=== PATIENT | female | born 1980 | race American Indian/Alaskan Native ===

== ENCOUNTER 2018-07-06 06:13 | Inpatient (IN) | payer OTHER ==
[2018-07-01 10:09] LABS: BUN/Creatinine Ratio 14; Blood Urea Nitrogen 11 mg/dL (7-17); Calcium 9.6 mg/dL (8.4-10.2); Hemolysis Index 23
--- NOTE | 2018-07-01 10:12 | Anesthesia Consultation ---
Anesthesia Consult and Med Hx Date of service: 07/06/18 - Airway Anesthetic Teeth Evaluation: Good ROM Head & Neck: Adequate Mental/Hyoid Distance: Adequate Intubation Access Assessment: Good - Pulmonary Exam CTA: Yes - Cardiac Exam Cardiac Exam: No Murmur - Pre-Operative Health Status ASA Pre-Surgery Classification: ASA3 Proposed Anesthetic Plan: General Nerve Block: TAP BLOCK - Cardiovascular System Hx Hypertension: Yes (x 5 yrs) - Central Nervous System Hx Psychiatric Problems: No - Hematic Hx Anemia: Yes - Other Systems Hx Alcohol Use: Yes (Occas) Hx Cancer: No
[2018-07-01 10:17] LABS: Hematocrit 33.9 % (30.3-42.9); Hemoglobin 11.1 gm/dl (10.1-14.3); Mean Corpuscular HGB Conc 33 % (30-34); Mean Corpuscular Volume 82 fl (79-97); Platelet Count 248 K/mm3 (140-440); Red Blood Count 4.15 M/mm3 (3.65-5.03); Red Cell Distribution Width 25.6 % (13.2-15.2)
[2018-07-01 12:08] LABS: Basophils % (Manual) 0 % (0.0-1.8); Total Cells Counted 100
[2018-07-01 12:09] LABS: Anisocytosis 1+; Hypochromasia 1+; Ovalocytes 1+; Platelet Estimate Consistent w Auto
[~2018-07-06 06:13] MED LIST: LACTATED RINGERS 1,000 ML IV SCH
[2018-07-06] MEDS ORDERED: Vasostrict ONE (06:59)
[2018-07-06] MEDS ORDERED: METHYLENE BLUE ONE (07:00)
[2018-07-06] MEDS ORDERED: NACL 0.9% 50 ML ONE (07:00)
[2018-07-06] MEDS ORDERED: XYLOCAINE CARDIAC IV ONE (07:07)
[2018-07-06] MEDS ORDERED: DIPRIVAN 10 MG/ML IV ONE (07:07)
[2018-07-06] MEDS ORDERED: ZEMURON IV ONE (07:07)
[2018-07-06] MEDS ORDERED: DILAUDID ONE (07:07)
--- NOTE | 2018-07-06 07:31 | Anesthesia Day of Surgery ---
Anesthesia Day of Surgery - Day of Surgery Patient Examined: Yes Patient H&P Reviewed: Yes Patient is NPO: Yes Beta Blockers: No Cardiac Clearance: No Pulmonary Clearance: No
[2018-07-06] MEDS ORDERED: MARCAINE 0.5% INFILTRATI ONE ×2 (07:39→07:40)
[2018-07-06] MEDS ORDERED: TYLENOL ONE (07:44)
[2018-07-06] MEDS ORDERED: ACD-A 500 ML IV ONE (07:59)
[2018-07-06] MEDS ORDERED: SUBLIMAZE IV PRN (08:00)
[2018-07-06] MEDS ORDERED: NARCAN 0.4 MG/1 ML IV PRN ×2 (08:00→11:27)
[2018-07-06] MEDS ORDERED: TYLENOL PO NR (08:00)
[2018-07-06] MEDS ORDERED: VERSED IV NR (08:00)
[2018-07-06] MEDS ORDERED: DEMEROL IV PRN (08:00)
[2018-07-06] MEDS ORDERED: SUBLIMAZE IV NR (08:00)
[2018-07-06] MEDS ORDERED: ZOFRAN IV PRN ×2 (08:00→11:27)
[2018-07-06] MEDS ORDERED: NEURONTIN PO NR (08:00)
--- NOTE | 2018-07-06 08:07 | History and Physical Report ---
History of Present Illness Date of examination: 07/06/18 Date of admission: 07/06/2018 Chief complaint: I'm here for surgery History of present illness: Pt is a 37 year old female who presents for definitive therapy for symptomatic uterine fibroids. Past History Past Medical History: hypertension, other (anemia) Past Surgical History: no surgical history Family/Genetic History: heart disease, hypertension Social history: Medications and Allergies Allergies Allergy/AdvReac Type Severity Reaction Status Date / Time Penicillins Allergy Itching Verified 06/29/18 16:41 Home Medications Medication Instructions Recorded Confirmed Last Taken Type Atenolol/Chlorthalidone [Tenoretic 1 tab PO QDAY 06/29/18 07/06/18 07/05/18 09:00 History 50-25] Iron Fum,Ps/Folic/Bcomp,C No.9 1 each PO DAILY 06/29/18 07/06/18 07/05/18 09:00 History [Integra Plus Capsule] Active Meds: Active Medications Acetaminophen (Tylenol) 650 mg PO PREOP NR Stop: 07/06/18 12:00 Fentanyl (Sublimaze) 100 mcg IV ONCE NR Stop: 07/06/18 12:00 Fentanyl (Sublimaze) 50 mcg IV Q5MIN PRN PRN Reason: Pain , Severe (7-10) Stop: 07/06/18 16:00 Gabapentin (Neurontin) 300 mg PO PREOP NR Stop: 07/06/18 12:00 Hydromorphone HCl (Dilaudid) 0.5 mg IV Q10MIN PRN PRN Reason: Pain , Severe (7-10) Stop: 07/06/18 16:00 Lactated Ringer's (Lactated Ringers) 1,000 mls @ 75 mls/hr IV DIRECT NAVEEN Stop: 07/06/18 23:59 Last Admin: 07/06/18 07:00 Dose: 75 mls/hr Documented by: Meperidine HCl (Demerol) 25 mg IV ONCE PRN PRN Reason: Shivering Stop: 07/06/18 16:00 Midazolam HCl (Versed) 2 mg IV PREOP NR Stop: 07/06/18 23:59 Naloxone HCl (Narcan 0.4 Mg/1 Ml) 0.1 mg IV Q2MIN PRN PRN Reason: Res Rate </= 8 or 02 SAT < 92% Ondansetron HCl (Zofran) 4 mg IV ONCE PRN PRN Reason: Nausea And Vomiting Stop: 07/06/18 16:00 Review of Systems Constitutional: fatigue, weakness Genitourinary: vaginal bleeding - Vital Signs Vital signs: Vital Signs Temp Pulse Resp BP Pulse Ox 98.2 F 74 18 137/76 100 07/01/18 09:30 07/01/18 09:30 07/01/18 09:30 07/01/18 09:30 07/01/18 09:30 Temp Pulse Resp BP Pulse Ox 97.4 F L 77 16 105/76 98 07/06/18 07:00 07/06/18 07:00 07/06/18 07:00 07/06/18 07:00 07/06/18 07:00 - Physical Exam Breasts: Cardiovascular: Regular rate, Normal S1, Normal S2 Lungs: Positive: Clear to auscultation, Normal air movement Abdomen: Positive: normal appearance, soft, normal bowel sounds. Negative: distention, tenderness Vulva: both: normal Vagina: Positive: normal moisture. Negative: discharge Cervix: Negative: lesion, discharge Uterus: Positive: enlarged, nodular Adnexa: both: normal Anus/Rectum: Positive: normal perianal skin, heme negative. Negative: rectal mass, hemorrhoids Extremities: Deep Tendon Reflex Grade: Normal +2 Results Result Diagrams: 07/01/18 09:40 07/01/18 09:40 All other labs normal. Assessment and Plan Pt here for surgery for fibroids and pain. Pt is consented for ROE. WIll proceed with same. Pt has been on iron to help increase blood count.
[2018-07-06] MEDS ORDERED: NEO SYNEPHRINE/NS Syringe(OR USE) IV ONE (08:44)
[2018-07-06] MEDS ORDERED: DECADRON ONE (08:46)
[2018-07-06] MEDS ORDERED: ZOFRAN ONE (08:46)
[2018-07-06] MEDS ORDERED: CLEOCIN 900 MG/50 mL 900 MG/50 ML BAG IV NR (09:00)
[2018-07-06] MEDS ORDERED: NACL 0.9% IR ONE (09:00)
[2018-07-06] MEDS ORDERED: Vasostrict IV ONE (09:00)
[2018-07-06] MEDS ORDERED: SUBLIMAZE ONE (09:17)
[2018-07-06] MEDS ORDERED: ROBINUL ONE (09:57)
[2018-07-06] MEDS ORDERED: BLOXIVERZ ONE (09:57)
[2018-07-06] MEDS: DILAUDID IV PRN ×2 (10:57→11:11)
--- NOTE | 2018-07-06 11:07 | Post Operative Note ---
Date of procedure: 07/06/18 Pre-op diagnosis: Menorrhagia, fibroids Post-op diagnosis: same Findings: Markedly enlarged and irregular uterus Procedure: Supracervical Abdominal Hysterectomy Anesthesia: HEATH Surgeon: CHRISTELLE SANCEHS Paper Stacker: LAUREN CARTWRIGHT Estimated blood loss: other (400cc) Pathology: list (uterus) Specimen disposition: to lab Condition: stable Disposition: PACU
[2018-07-06] MEDS ORDERED: BENADRYL IV PRN (11:27)
[2018-07-06] MEDS: TORADOL IV SCH (11:40)
[2018-07-06] MEDS ORDERED: TORADOL ONE (11:40)
[2018-07-06] MEDS ORDERED: DILAUDID IV PRN (11:50)
[2018-07-06] MEDS ORDERED: D5LR 1,000 ML IV ONE (12:00)
[2018-07-06] MEDS ORDERED: NACL 0.9% 1000 ML 1,000 ML IV SCH (12:00)
[2018-07-06] MEDS ORDERED: D5LR 1,000 ML IV SCH (12:00)
[2018-07-06] MEDS ORDERED: DILAUDID PCA 6MG/30ML IV SCH (12:00)
--- NOTE | 2018-07-06 12:36 | Post Anesthesia Evaluation ---
- Post Anesthesia Evaluation Patient Participated: Yes Airway Patent: Yes Stable Respiratory Function: Yes Nausea/Vomiting: No Temp > 96.8F: Yes Pain Manageable: Yes Adequeate Hydration: Yes Anesthesia Complications: No
[2018-07-06] MEDS: SENOKOT S PO SCH (22:14)
[2018-07-06] MEDS: COLACE PO SCH (22:14)
[2018-07-07] MEDS: TORADOL IV SCH ×2 (03:23→21:01)
[2018-07-07 07:48] LABS: Hematocrit 29.7 % (30.3-42.9); Hemoglobin 9.7 gm/dl (10.1-14.3)
[2018-07-07] MEDS: COLACE PO SCH ×2 (10:45→21:00)
[2018-07-07] MEDS: SENOKOT S PO SCH ×2 (10:45→21:00)
[2018-07-07] MEDS: PERCOCET 5/325 PO PRN ×2 (10:45→21:00)
--- NOTE | 2018-07-07 19:09 | Progress Note ---
Subjective - Subjective Date of service: 07/07/18 Interval history: Pt is a 37 year old female who presents for definitive therapy for symptomatic uterine fibroids. Patient reports: appetite normal, voiding normally, pain well controlled, ambulating normally Objective - Vital Signs Latest vital signs: Vital Signs Temp Pulse Resp BP Pulse Ox 07/07/18 17:32 97.7 F 80 20 105/52 97 07/07/18 12:42 97.7 F 61 20 104/50 96 07/07/18 10:45 16 07/07/18 08:03 98.7 F 58 L 20 102/60 100 07/07/18 04:42 98.0 F 53 L 18 90/52 98 07/07/18 00:20 98.7 F 59 L 20 112/62 100 07/06/18 22:00 18 07/06/18 19:55 99.1 F 69 20 110/68 100 Intake and Output 07/07/18 07/07/18 07/07/18 06:59 14:59 22:59 Output Total 750 Balance -750 Output: Urine 750 Indwelling Catheter 750 Other: Total, Output Amount 750 Voiding Method Indwelling Catheter Toilet - Labs Labs: Abnormal lab results 07/07/18 Range/Units 07:15 Hgb 9.7 L (10.1-14.3) gm/dl Hct 29.7 L (30.3-42.9) %
--- NOTE | 2018-07-07 19:20 | Operative Report ---
Operative Report Operative Report: Preoperative diagnosis: Fibroids and menorrhagia Postoperative diagnosis: Same Procedure: Supracervical abdominal hysterectomy Surgeon: Elizabeth Blair M.D. Asst.: Connie Solorzano M.D. Anesthesia: Gen. EBL: 4 50 mL IV fluids: 1700 mL LR, 1 25 mL RBCs from Cell Saver Urine output: 200 mL Findings: Markedly enlarged and irregular uterus consistent with multiple uterine fibroids Specimen: Uterus Complications: None The patient was properly identified as herself. She was then taken to the OR with IV running and in place. She was given general anesthesia without difficulty. She was placed in the supine position. She was then prepped and draped in the normal sterile fashion. Attention was turned to the patient's abdomen. A transverse incision was made using a scalpel and carried to underlying fascia using the scalpel and the Bovie. She was incised in midline and incision was extended bilaterally using the curved Montez scissors. She was then dissected from underlying rectus muscles in a series of sharp and blunt dissection using the scissors. Muscles were incised in the midline he was entered. Findings were as above with a markedly enlarged multi-fibroid uterus. The uterus was delivered through the abdominal incision. It was then injected with Pitressin solution for a total of 20 mL in various locations on the uterus. Attention was then turned to the round ligaments. They were grasped cauterized and transected using the LigaSure bilaterally. The bladder flap was then created. The utero-ovarian arteries likewise were grasped, cauterized and transected with the LigaSure. Bowel was packed away out of visualization of the incision. Uterine arteries were then skeletonized they were also grasped and suture ligated bilaterally. The decision was made at this time to amputate the uterus at the level of the cervix. This was done using a long handled scalpel. Once completely amputated the uterus was handed off for pathology. Bowel was further packed away. The cervical stump was grasped with a double-tooth tenaculum. It was oversewn in a running locked fashion using 0 Vicryl. At this point the abdomen and pelvis were copiously irrigated using warm normal saline and excellent hemostasis. At this point all instruments laps and sponges were removed from the patient's abdomen and pelvis. The muscles were reapproximated in the midline using sutures of 0 Vicryl. Fascia was then closed in a running fashion using 0 Vicryl. The subcutaneous tissue was placed together with retention sutures. The skin was closed with aviva. She tolerated procedure well and she was then awakened recovery in stable condition. The sponge needle and instrument count correct 2.
[2018-07-08] MEDS: TORADOL IV SCH ×2 (00:45→06:18)
[2018-07-08] MEDS ORDERED: CHLORASEPTIC MM PRN (06:16)
[2018-07-08 08:39] VITALS: BP 108/66
[2018-07-08] MEDS: COLACE PO SCH (10:36)
[2018-07-08] MEDS: PERCOCET 5/325 PO PRN (10:36)
--- NOTE | 2018-07-08 11:15 | Discharge Summary ---
Providers - Providers Date of Admission: 07/06/18 11:02 Date of discharge: 07/08/18 Attending physician: CHRISTELLE SANCHES Hospitalization Reason for admission: other Procedure: other Procedure details: see op report Incision: normal, dry, intact Other procedures: none complications: none Hospital course: unremarkable Condition at discharge: Good Disposition: DC-01 TO HOME OR SELFCARE Plan - Discharge Medications Prescriptions: Docusate Sodium [Colace] 100 mg PO BID PRN #60 capsule PRN Reason: Constipation Ibuprofen [Motrin] 800 mg PO Q8HR PRN #40 tablet PRN Reason: Pain, Moderate (4-6) oxyCODONE /ACETAMINOPHEN [Percocet 5/325] 2 tab PO Q6HR PRN #40 tablet PRN Reason: Pain - Provider Discharge Summary Activity: routine, no sex for 6 weeks, no heavy lifting 4 weeks, no strenuous exercise Diet: routine Instructions: routine Additional instructions: [] Smoking cessation referral if applicable(refer to patient education folder for contact #) [] Refer to [facility] Booklet Call your doctor immediately for: * Fever > 100.5 * Heavy vaginal bleeding ( >1 pad per hour) * Severe persistent headache * Shortness of breath * Reddened, hot, painful area to leg or breast * Drainage or odor from incision. * Keep incision clean and dry at all times and follow doctor's instructions regarding bathing/showering - Follow up plan Follow up: CHRISTELLE SANCHES MD [Staff Physician] - 14 Days
== END 2018-07-08 12:35 | disposition home or self-care (01) | DRG 742 ==
LOC: OR 06:13 → EDSTATUS 08:00 → OB 11:02
PROVIDERS: ADMIT Obstetrics & Gynecology; ATTEND Obstetrics & Gynecology
PROC: 0UT90ZL Resection of Uterus, Supracervical, Open Approach (ICD-10-PCS; principal; 2018-07-06)
DX: D25.9 Leiomyoma of uterus, unspecified (principal); D62 Acute posthemorrhagic anemia; I10 Essential (primary) hypertension; N92.0 Excessive and frequent menstruation with regular cycle; Z82.49 Family history of ischemic heart disease and other diseases of the circulatory system; Z88.0 Allergy status to penicillin; Z79.899 Other long term (current) drug therapy
CPT/HCPCS: 36415; 64450; 80048; 81025; 84703; 85007; 85014; 85018; 85025; 86850; 86900; 86901; 88307; G0378; C1765; J1100; J1170; J1885; J2001; J2250; J2370; J2405; J2704; J2710; J3010; J7120; J7121; Q9968

== ENCOUNTER 2018-07-17 21:40 | Inpatient (IN) | payer OTHER ==
[2018-07-17] MEDS ORDERED: IBUPROFEN PO PRN (22:55)
[2018-07-17] MEDS ORDERED: NARCAN 0.4 MG/1 ML IV PRN (22:55)
[2018-07-17] MEDS ORDERED: ZOFRAN ODT PO PRN (22:55)
[2018-07-18] MEDS: TYLENOL PO PRN (02:42)
[2018-07-18 03:37] LABS: Hematocrit 26.7 % (30.3-42.9); Hemoglobin 8.8 gm/dl (10.1-14.3); Mean Corpuscular HGB Conc 33 % (30-34); Mean Corpuscular Volume 84 fl (79-97); Platelet Count 341 K/mm3 (140-440)
[2018-07-18 03:48] LABS: Red Cell Distribution Width 25.5 % (13.2-15.2)
[2018-07-18 05:13] LABS: Band Neutrophils # (Manual) 0.3 K/mm3; Total Cells Counted 100
[2018-07-18 05:14] LABS: Hypochromasia 1+; Platelet Estimate Consistent w Auto
[2018-07-18] MEDS: CLEOCIN 600 MG/50 mL 600 MG/50 ML BAG IV SCH ×3 (05:16→22:23)
[2018-07-18] MEDS: LACTATED RINGERS 1,000 ML IV SCH ×2 (05:18→10:00)
[2018-07-18] MEDS: PERCOCET 5/325 PO PRN ×2 (11:05→18:27)
--- NOTE | 2018-07-18 16:44 | History and Physical Report ---
History of Present Illness Date of examination: 07/18/18 Date of admission: 07/17/18 22:53 Chief complaint: My incision is bleeding History of present illness: Pt is a 37 year old female who presents as a transfer from [place] ED for wound infection at 11 post op from Supracervical hysterectomy. Patient has a fluid collection that has been expanding and on yesterday began draining serous fluid with a bad odor Past History Past Medical History: hypertension Past Surgical History: hysterectomy Social history: single Medications and Allergies Allergies Allergy/AdvReac Type Severity Reaction Status Date / Time Penicillins Allergy Itching Verified 06/29/18 16:41 Home Medications Medication Instructions Recorded Confirmed Last Taken Type Atenolol/Chlorthalidone [Tenoretic 1 tab PO QDAY 06/29/18 07/18/18 07/05/18 09:00 History 50-25] Iron Fum,Ps/Folic/Bcomp,C No.9 1 each PO DAILY 06/29/18 07/18/18 07/05/18 09:00 History [Integra Plus Capsule] Docusate Sodium [Colace] 100 mg PO BID PRN #60 capsule 07/07/18 07/18/18 07/17/18 15:00 Rx Ibuprofen [Motrin] 800 mg PO Q8HR PRN #40 tablet 07/07/18 07/18/18 07/17/18 13:00 Rx oxyCODONE /ACETAMINOPHEN [Percocet 2 tab PO Q6HR PRN #40 tablet 07/07/18 07/18/18 07/17/18 15:00 Rx 5/325] Ciprofloxacin HCl [Ciprofloxacin 500 mg PO Q12H #14 tab 07/14/18 07/18/18 Unknown Rx TAB] Active Meds: Active Medications Acetaminophen (Tylenol) 650 mg PO Q4H PRN PRN Reason: Pain, Mild (1-3) Last Admin: 07/18/18 02:42 Dose: 650 mg Documented by: Lactated Ringer's (Lactated Ringers) 1,000 mls @ 125 mls/hr IV DIRECT NAVEEN Last Admin: 07/18/18 05:18 Dose: 125 mls/hr Documented by: Clindamycin HCl (Cleocin 600 Mg/50 Ml) 600 mg in 50 mls @ 100 mls/hr IV Q8HR NAVEEN; Protocol Last Admin: 07/18/18 05:16 Dose: 100 mls/hr Documented by: Ibuprofen (Motrin) 800 mg PO Q8H PRN PRN Reason: Pain, Mild (1-3) Naloxone HCl (Narcan 0.4 Mg/1 Ml) 0.1 mg IV Q2MIN PRN PRN Reason: Res Rate </= 8 or 02 SAT < 92% Ondansetron HCl (Zofran Odt) 4 mg PO Q8H PRN PRN Reason: Nausea And Vomiting Oxycodone/Acetaminophen (Percocet 5/325) 2 tab PO Q4H PRN PRN Reason: Pain, Moderate (4-6) Last Admin: 07/18/18 11:05 Dose: 2 tab Documented by: Review of Systems All systems: negative - Constitutional fever (low grade) - Gastrointestinal abdominal pain, constipation, belching Exam Vital Signs Temp Resp BP Pulse Ox 100.1 F H 18 126/75 100 07/18/18 01:35 07/18/18 01:35 07/18/18 01:35 07/18/18 01:35 - General physical appearance Positive: well developed, well nourished, no distress - Respiratory Positive: normal expansion, clear to percussion, clear to auscultation - Cardiovascular Rhythm: regular Heart Sounds: Present: S1 & S2 - Extremities Extremities: no ischemia, No edema - Breasts Breasts: deferred - Abdomen Abdomen: Present: soft, distended, wound (open approx 1 inch and draining) Results - Labs 07/18/18 03:05 Abnormal lab results 07/18/18 Range/Units 03:05 RBC 3.20 L (3.65-5.03) M/mm3 Hgb 8.8 L (10.1-14.3) gm/dl Hct 26.7 L (30.3-42.9) % RDW 25.5 H (13.2-15.2) % Seg Neuts % (Manual) 75.0 H (40.0-70.0) % Assessment and Plan HD 1 for this post op wound infection. Admit for management. Consult wound care. Begin IV antibiotics. To consider home care for packing pending wound consult.
[2018-07-19] MEDS: PERCOCET 5/325 PO PRN ×4 (04:25→23:06)
[2018-07-19] MEDS: LACTATED RINGERS 1,000 ML IV SCH (05:40)
[2018-07-19] MEDS: CLEOCIN 600 MG/50 mL 600 MG/50 ML BAG IV SCH (05:40)
[2018-07-19] MEDS: LEVAQUIN PO SCH (13:01)
[2018-07-19] MEDS: TYLENOL PO PRN (20:40)
[2018-07-20] MEDS: LEVAQUIN PO SCH (09:10)
[2018-07-20] MEDS: PERCOCET 5/325 PO PRN (09:10)
[2018-07-20] MEDS ORDERED: HYDROGEN PEROXIDE ONE (09:44)
--- NOTE | 2018-07-20 10:11 | Progress Note ---
Assessment and Plan HD 3 for this patient who is 2 weeks post op from a [facility] with a new superficial wound dehisence with mild cellulitis. Pt was seen by wound care but incision was packed suboptimally. Incision repacked and dressed on today. Plan for discharge on today with follow up in office for biweekly packing unless patient can get approved for home care weekly. Otherwise plan for discharge on today. Subjective - Subjective Date of service: 07/20/18 Principal diagnosis: Wound dehiscence Interval history: Pt is a 37 year old female who presents as a transfer from [place] ED for wound infection at 11 post op from Supracervical hysterectomy. Patient has a fluid collection that has been expanding and on yesterday began draining serous fluid with a bad odor Patient reports: voiding normally, pain well controlled, appetite poor, ambulating normally Objective - Vital Signs Latest vital signs: Vital Signs Temp Pulse Resp BP BP Pulse Ox 07/20/18 07:36 99.7 F H 92 H 16 127/73 98 07/20/18 05:17 99.5 F 87 18 144/78 97 07/20/18 01:08 100.4 F H 93 H 18 123/69 94 07/19/18 20:25 101.6 F H 90 20 119/81 98 07/19/18 16:06 98.1 F 90 20 122/77 98 07/19/18 12:18 98.9 F 86 20 131/89 95 Intake and Output 07/19/18 07/20/18 07/20/18 22:59 06:59 14:59 Intake Total 120 Output Total 500 Balance -500 120 Intake: Intake, Free Water 120 Output: Urine 500 Void 500 Other: Total, Output Amount 500 Voiding Method Toilet Toilet # Voids Void 800 - Exam Breasts: Present: deferred Lungs: Present: Clear to auscultation, Normal air movement Abdomen: Present: normal appearance, normal bowel sounds Incision: Present: suppurative, edematous, skin , warm - Labs Labs: Abnormal lab results 07/20/18 Range/Units 05:49 Creatinine 0.6 L (0.7-1.2) mg/dL
--- NOTE | 2018-07-20 10:16 | Discharge Summary ---
Providers - Providers Date of Admission: 07/17/18 22:53 Date of discharge: 07/20/18 Attending physician: CHRISTELLE SANCHES 07/18/18 08:51 Consult to Wound/ET Nurse [CONS] Urgent Reason For Exam: wound eval 07/19/18 11:14 Consult to Case Management [CONS] Urgent Services Needed at Discharge: Home Health Services Notified:: front office secretary Additional Physician Instructions: Please consult for patient to have home health care for biweekly incisional packing Primary care physician: CHRISTELLE SANCHES Hospitalization Reason for admission: other (wound dehiscence) Procedure details: none complications: wound infection Condition at discharge: Good Disposition: DC- TO HOME OR SELFCARE Plan - Discharge Medications Prescriptions: Ciprofloxacin HCl [Cipro] 500 mg PO Q12H #20 tablet Oxycodone HCl/Acetaminophen [Percocet 7.5/325 mg] 1 each PO Q6HR PRN #40 tablet PRN Reason: Pain - Provider Discharge Summary Activity: routine, no sex for 6 weeks, no heavy lifting 4 weeks, no strenuous exercise Diet: routine Instructions: routine Additional instructions: [] Smoking cessation referral if applicable(refer to patient education folder for contact #) [] Refer to [facility]'s [facility] Booklet Call your doctor immediately for: * Fever > 100.5 * Heavy vaginal bleeding ( >1 pad per hour) * Severe persistent headache * Shortness of breath * Reddened, hot, painful area to leg or breast * Drainage or odor from incision. * Keep incision clean and dry at all times and follow doctor's instructions regarding bathing/showering - Follow up plan Follow up: CHRISTELLE SANCHES MD [Primary Care Provider] - 7 Days
[2018-07-20] MEDS ORDERED: HYDROGEN PEROXIDE TP ONE (12:30)
[2018-07-20 15:25] VITALS: BP 136/87
== END 2018-07-20 18:00 | disposition home health service (06) | DRG 863 ==
LOC: UNDOADMIN 21:40 → 3A 21:40 → OB 22:53
PROVIDERS: ADMIT Obstetrics & Gynecology; ATTEND Obstetrics & Gynecology
DX: T81.49XA Infection following a procedure, other surgical site, initial encounter (principal); T81.30XA Disruption of wound, unspecified, initial encounter; L03.311 Cellulitis of abdominal wall; I10 Essential (primary) hypertension; Z90.710 Acquired absence of both cervix and uterus; Z88.0 Allergy status to penicillin; Y83.8 Other surgical procedures as the cause of abnormal reaction of the patient, or of later complication, without mention of misadventure at the time of the procedure
CPT/HCPCS: 36415; 82565; 85007; 85025; 87116; G0378; J7120

== ENCOUNTER 2018-08-15 10:23 | Emergency (ER) | payer OTHER ==
[2018-08-15 10:52] VITALS: BP 144/95
[2018-08-15 11:35] LABS: Hematocrit 33.5 % (30.3-42.9); Hemoglobin 10.9 gm/dl (10.1-14.3); Mean Corpuscular HGB Conc 32 % (30-34); Mean Corpuscular Volume 85 fl (79-97); Platelet Count 187 K/mm3 (140-440); Red Blood Count 3.94 M/mm3 (3.65-5.03); Red Cell Distribution Width 23.6 % (13.2-15.2)
[2018-08-15] MEDS ORDERED: CLEOCIN 600 MG/50 mL 600 MG/50 ML BAG IV ONE (11:49)
[2018-08-15 11:54] LABS: BUN/Creatinine Ratio 14; Blood Urea Nitrogen 11 mg/dL (7-17); Calcium 9.3 mg/dL (8.4-10.2); Hemolysis Index 11
--- NOTE | 2018-08-15 12:06 | Emergency Department Report ---
HPI - General Chief Complaint: Skin/Abscess/Foreign Body Time Seen by Provider: 08/15/18 11:35 - HPI HPI: Ms Escalona is a 37-year-old -[place] female comes to the ER today with redness and swelling to her lower abdomen. She had a hysterectomy with a subsequent abscess in the first week of July of this year. She has an open wound that she gets packing to twice per week. The skin is red and inflamed. The patient has no fever. She was unable to reach the surgeon so she came to the emergency room. She states that she has completed her antibiotics which was Cipro by mouth twice a day. She was concerned with how red and inflamed the skin looks so she came to the ER for evaluation. ED Past Medical Hx - Past Medical History Previous Medical History?: Yes Hx Hypertension: Yes Hx GERD: Yes - Surgical History Past Surgical History?: Yes Additional Surgical History: hysterectomy - Social History Smoking Status: Never Smoker Substance Use Type: Alcohol - Medications Home Medications: Home Medications Medication Instructions Recorded Confirmed Last Taken Type Atenolol/Chlorthalidone [Tenoretic 1 tab PO QDAY 06/29/18 07/18/18 07/05/18 09:00 History 50-25] Iron Fum,Ps/Folic/Bcomp,C No.9 1 each PO DAILY 06/29/18 07/18/18 07/05/18 09:00 History [Integra Plus Capsule] Docusate Sodium [Colace] 100 mg PO BID PRN #60 capsule 07/07/18 07/18/18 07/17/18 15:00 Rx Clindamycin [Clindamycin CAP] 300 mg PO Q8H #30 cap 08/15/18 Unknown Rx ED Review of Systems ROS: Stated complaint: PASS SURGERY/STOMACH PAIN Other details as noted in HPI Comment: All other systems reviewed and negative Physical Exam - Physical Exam Vital Signs: Vital Signs 08/15/18 08/15/18 10:50 11:20 Temperature 97.9 F Pulse Rate 85 Respiratory 16 16 Rate Blood Pressure 144/95 O2 Sat by Pulse 100 Oximetry Physical Exam: WDWN patient in NAD VS per RN flow sheet Alert and oriented to person, place and time. S1-S2. No S3 or S4. No systolic or diastolic murmur. No JVD. No pitting edema. Lungs clear to auscultation bilaterally anteriorly and posteriorly. Abdomen soft nontender bowel soundsx 4 lower abd red and inflammed. no abscess. she has a packed area with no drainage. she packs several times per week per the surgeon. no fever. non toxic. ambulatory and taking po without difficulty. no tachycardia. no hypotension. Moves all extremities well. Mood and affect appropriate. ED Course Vital Signs 08/15/18 08/15/18 10:50 11:20 Temperature 97.9 F Pulse Rate 85 Respiratory 16 16 Rate Blood Pressure 144/95 O2 Sat by Pulse 100 Oximetry ED Medical Decision Making - Lab Data Result diagrams: 08/15/18 11:08 08/15/18 11:08 - Radiology Data Radiology results: report reviewed, image reviewed - Medical Decision Making Lab Results 08/15/18 08/15/18 08/15/18 Range/Units 11:08 11:08 12:32 WBC 3.6 L (4.5-11.0) K/mm3 RBC 3.94 (3.65-5.03) M/mm3 Hgb 10.9 (10.1-14.3) gm/dl Hct 33.5 (30.3-42.9) % MCV 85 (79-97) fl MCH 28 (28-32) pg MCHC 32 (30-34) % RDW 23.6 H (13.2-15.2) % Plt Count 187 (140-440) K/mm3 Add Manual Diff Complete Total Counted 100 Seg Neuts % (Manual) 89.0 H (40.0-70.0) % Band Neutrophils % 0 % Lymphocytes % (Manual) 9.0 L (13.4-35.0) % Reactive Lymphs % (Man) 0 % Monocytes % (Manual) 1.0 (0.0-7.3) % Eosinophils % (Manual) 1.0 (0.0-4.3) % Basophils % (Manual) 0 (0.0-1.8) % Metamyelocytes % 0 % Myelocytes % 0 % Promyelocytes % 0 % Blast Cells % 0 % Nucleated RBC % Not Reportable Seg Neutrophils # Man 3.2 (1.8-7.7) K/mm3 Band Neutrophils # 0.0 K/mm3 Lymphocytes # (Manual) 0.3 L (1.2-5.4) K/mm3 Abs React Lymphs (Man) 0.0 K/mm3 Monocytes # (Manual) 0.0 (0.0-0.8) K/mm3 Eosinophils # (Manual) 0.0 (0.0-0.4) K/mm3 Basophils # (Manual) 0.0 (0.0-0.1) K/mm3 Metamyelocytes # 0.0 K/mm3 Myelocytes # 0.0 K/mm3 Promyelocytes # 0.0 K/mm3 Blast Cells # 0.0 K/mm3 WBC Morphology Not Reportable Hypersegmented Neuts Not Reportable Hyposegmented Neuts Not Reportable Hypogranular Neuts Not Reportable Smudge Cells Not Reportable Toxic Granulation Not Reportable Toxic Vacuolation Not Reportable Dohle Bodies Not Reportable Pelger-Huet Anomaly Not Reportable Makayla Rods Not Reportable Platelet Estimate Consistent w auto Clumped Platelets Not Reportable Plt Clumps, EDTA Not Reportable Large Platelets Not Reportable Giant Platelets Not Reportable Platelet Satelliting Not Reportable Plt Morphology Comment Not Reportable RBC Morphology Not Reportable Dimorphic RBCs Not Reportable Polychromasia Not Reportable Hypochromasia Not Reportable Poikilocytosis 1+ Anisocytosis 1+ Microcytosis Not Reportable Macrocytosis Not Reportable Spherocytes Not Reportable Pappenheimer Bodies Not Reportable Sickle Cells Not Reportable Target Cells Not Reportable Tear Drop Cells Not Reportable Ovalocytes Few Helmet Cells Not Reportable Calderon-Frostproof Bodies Not Reportable [place] Rings Not Reportable Darrick Cells Not Reportable Bite Cells Not Reportable Crenated Cell Not Reportable Elliptocytes Few Acanthocytes (Spur) Not Reportable Rouleaux Not Reportable Hemoglobin C Crystals Not Reportable Schistocytes Not Reportable Malaria parasites Not Reportable Choco Bodies Not Reportable Hem Pathologist Commnt No Sodium 141 (137-145) mmol/L Potassium 4.1 (3.6-5.0) mmol/L Chloride 103.2 (98-107) mmol/L Carbon Dioxide 23 (22-30) mmol/L Anion Gap 19 mmol/L BUN 11 (7-17) mg/dL Creatinine 0.8 (0.7-1.2) mg/dL Estimated GFR > 60 ml/min BUN/Creatinine Ratio 14 % Glucose 97 (65-100) mg/dL Calcium 9.3 (8.4-10.2) mg/dL Urine Color Yellow (Yellow) Urine Turbidity Slightly-cloudy (Clear) Urine pH 6.0 (5.0-7.0) Ur Specific [place] 1.020 (1.003-1.030) Urine Protein <15 mg/dl (Negative) mg/dL Urine Glucose (UA) Neg (Negative) mg/dL Urine Ketones Neg (Negative) mg/dL Urine Blood Neg (Negative) Urine Nitrite Neg (Negative) Urine Bilirubin Neg (Negative) Urine Urobilinogen < 2.0 (<2.0) mg/dL Ur Leukocyte Esterase Tr (Negative) Urine WBC (Auto) 4.0 (0.0-6.0) /HPF Urine RBC (Auto) 4.0 (0.0-6.0) /HPF U Epithel Cells (Auto) 7.0 (0-13.0) /HPF Urine Bacteria (Auto) 1+ (Negative) /HPF Urine Mucus Few /HPF Vital Signs 08/15/18 08/15/18 10:50 11:20 Temperature 97.9 F Pulse Rate 85 Respiratory 16 16 Rate Blood Pressure 144/95 O2 Sat by Pulse 100 Oximetry labs noted wbc noted wound care provided CT noted IV clinda discussed findings with pt. she is to follow up with surgeon in AM dc home with family. VSS NAD Critical care attestation.: If time is entered above; I have spent that time in minutes in the direct care of this critically ill patient, excluding procedure time. ED Disposition Clinical Impression: Cellulitis, Post op infection, Disruption of external operation (surgical) wound Disposition: DC-01 TO HOME OR SELFCARE Is pt being admited?: No Does the pt Need Aspirin: No Condition: Stable Instructions: Cellulitis (ED) Additional Instructions: DIET TOLERATED MEDS ORDERED TODAY IN ER FOLLOW INSTRUCTIONS ON THE BOTTLE FOLLOW UP PCP WITHIN 48 HOURS TO ENSURE YOU ARE GETTING BETTER ACTIVITY TOLERATED MOTRIN OR TYLENOL FOR PAIN OR FEVER RETURN TO THE ER FOR WORSENING SYMPTOMS NOT RELIEVED BY YOUR MEDICATIONS. Prescriptions: Clindamycin [Clindamycin CAP] 300 mg PO Q8H #30 cap Referrals: SHADY MCINTYRE MD [Primary Care Provider] - 3-5 Days Time of Disposition: 15:48
[2018-08-15 12:27] LABS: Anisocytosis 1+; Basophils % (Manual) 0 % (0.0-1.8); Poikilocytosis 1+; Total Cells Counted 100
[2018-08-15 12:28] LABS: Ovalocytes Few; Platelet Estimate Consistent w Auto
[2018-08-15 13:29] LABS: Bacteria,Urine 1+ /HPF (Negative); Bilirubin,Urine NEG (Negative); Blood,Urine NEG (Negative); Color,Urine Yellow (Yellow); Mucus,Urine FEW /HPF; Protein,Urine <15 mg/dL mg/dL (Negative); Urobilinogen,Urine < 2.0 mg/dL (<2.0)
--- NOTE | 2018-08-15 15:09 | Cat Scan Report ---
CT ABDOMEN PELVIS WITH CONTRAST: HISTORY: Abdominal pain, postoperative abscess in July. COMPARISON: 07/14/18. TECHNIQUE: Helical CT in 1.25mm intervals following IV contrast. Sagittal and coronal reconstructions. FINDINGS: Lung bases: Normal. Liver: Normal. Biliary system: Normal. Pancreas: Normal. Spleen: Normal. Kidneys/ureters/bladder: Normal. Adrenal glands: Normal. Aorta: Normal. Intestines: Normal. Appendix: Normal. Pelvic viscera: The uterus is small in size or has been surgically removed, correlate with history. The ovaries are unremarkable. Ascites: None. Adenopathy: None. Musculoskeletal: The anterior abdominal wall fluid collection consistent with abscess seen on the previous exam has resolved. No new abscess is appreciated. The bony structures are within normal limits. IMPRESSION: Unremarkable CT scan of the abdomen and pelvis with contrast. No acute process is noted. Abdominal wall abscess has resolved since 07/14/18.
[2018-08-15] MEDS ORDERED: NORCO 7.5/325 PO ONE (15:50)
[2018-08-15 23:06] LABS: HCG Qualitative,Urine Negative (Negative)
== END 2018-08-15 16:21 | disposition home or self-care (01) ==
LOC: ED 10:23
DX: T81.31XA Disruption of external operation (surgical) wound, not elsewhere classified, initial encounter (principal); T81.41XA Infection following a procedure, superficial incisional surgical site, initial encounter; I10 Essential (primary) hypertension; K21.9 Gastro-esophageal reflux disease without esophagitis; Z90.710 Acquired absence of both cervix and uterus; Z88.0 Allergy status to penicillin; L03.311 Cellulitis of abdominal wall; Y83.8 Other surgical procedures as the cause of abnormal reaction of the patient, or of later complication, without mention of misadventure at the time of the procedure; Y92.89 Other specified places as the place of occurrence of the external cause
CPT/HCPCS: 36415; 74177; 80048; 81001; 81025; 85007; 85025; 96365; 96366; 99284; Q9967